=== PATIENT | male | born 2000 | race African-American/Black ===

== ENCOUNTER 2019-07-09 11:04 | Emergency (ER) | payer MEDICAID ==
[~2019-07-09] VITALS: Ht 157.5 cm; Wt 79.0 kg
[2019-07-09] MEDS ORDERED: PRED10TA PO (11:23)
[2019-07-09] MEDS ORDERED: CHOL20004 PO (11:23)
[2019-07-09] MEDS ORDERED: CALC-906 PO (11:23)
[2019-07-09] MEDS ORDERED: LISI10TA5 PO (11:23)
[2019-07-09] MEDS ORDERED: METO-396 PO (11:23)
[2019-07-09] MEDS ORDERED: SPIR50TA5 PO (11:23)
[2019-07-09] MEDS ORDERED: MULT1TAB67 PO (11:23)
[2019-07-09] MEDS ORDERED: DOCU-138 PO (11:23)
[2019-07-09 13:28] VITALS: BP 122/70
== END 2019-07-09 13:29 | disposition home or self-care (01) ==
LOC: ER 11:04
DX: M79.674 Pain in right toe(s) (principal); Z79.899 Other long term (current) drug therapy
CPT/HCPCS: 73620; 99283

== ENCOUNTER 2023-02-26 07:52 | Emergency (ER) | payer MEDICAID ==
[~2023-02-26] VITALS: Ht 152.4 cm; Wt 54.0 kg
[~2023-02-26 07:52] MED LIST: CALC-906 PO; CHOL20004 PO; DOCU-138 PO; LISI10TA26 PO; METO-396 PO; MULT-622 PO; PRED10TA PO; SPIR50TA5 PO
[2023-02-26 08:10] VITALS: BP 108/71; PULSE 76; RESP 20; TEMP 98.2; O2SAT 100
== END 2023-02-26 09:20 | disposition home or self-care (01) ==
LOC: ER 08:07
DX: H11.31 Conjunctival hemorrhage, right eye (principal)
CPT/HCPCS: 99281